=== PATIENT | female | born 1945 | race Caucasian/White ===

== ENCOUNTER 2016-08-15 07:01 | Day surgery (SDC) | payer MEDICARE, OTHER ==
[~2016-08-15] VITALS: Ht 152.4 cm; Wt 80.0 kg
[2016-08-15] VITALS (10 sets, daily range): BP systolic 86–180; BP diastolic 45–84; PULSE 61–70; RESP 14–21; Ht 152.4 cm; Wt 80.0 kg
[~2016-08-15 07:01] MED LIST: ACAR50TA9; ATEN-51; GLIM2TAB47; LEVO88TA36; METF-480; SIMV20TA; SITA100T8
[2016-08-15 08:15] LABS: INR 0.93; PROTIME 12.5 Sec (12.2-14.2)
[2016-08-15 08:16] LABS: PARTIAL THROMBOPLASTIN TIME 27.4 Sec (25.0-35.0)
[2016-08-15 08:17] LABS: BASOPHIL # 0.1 10^3/ul (0.0-0.1); BASOPHILS % 0.9 % (0.0-2.0); EOSINOPHILS # 0.1 10^3/ul (0.0-0.5); HEMATOCRIT 36.9 % (37.0-47.0); HEMOGLOBIN 12.4 g/dl (12.0-16.0); LYMPHOCYTES # 2.6 10^3/ul (0.8-2.9); LYMPHOCYTES % 36.2 % (15.0-51.0); MEAN CORPUSCULAR HEMOGLOBIN 29.5 pg (29.0-33.0); MEAN CORPUSCULAR HGB CONC 33.4 g/dl (32.0-37.0); MEAN CORPUSCULAR VOLUME 88.4 fl (82.0-101.0); MONOCYTE # 0.5 10^3/ul (0.3-0.9); MONOCYTES % 7.2 % (0.0-11.0); NEUTROPHIL # 3.9 10^3/ul (1.6-7.5); NEUTROPHILS % 54.7 % (39.0-77.0); PLATELET COUNT 247 10^3/UL (140-440); RED BLOOD COUNT 4.18 10^6/ul (4.20-5.40); RED CELL DISTRIBUTION WIDTH 13.3 % (11.5-14.5); UNCORRECTED WBC 7.1 10^3/ul (4.8-10.8); WHITE BLOOD COUNT 7.1 10^3/ul (4.8-10.8)
[2016-08-15 08:22] LABS: CHOL/HDL RATIO 3.8 RATIO; CREATININE 0.52 mg/dl (0.44-1.00); POTASSIUM 4.1 mmol/L (3.5-5.1)
[2016-08-15 08:23] LABS: CALCIUM 9.2 mg/dl (8.4-10.2)
[2016-08-15] MEDS ORDERED: PIOG30TA26 PO (08:46)
[2016-08-15] MEDS ORDERED: DULO60CA6 PO (08:46)
[2016-08-15] MEDS ORDERED: LEVO88TA3 PO (08:46)
[2016-08-15] MEDS ORDERED: METF850T PO (08:46)
[2016-08-15] MEDS ORDERED: CLON1TAB3 PO (08:46)
[2016-08-15] MEDS ORDERED: METO25TA4 PO (08:46)
[2016-08-15] MEDS ORDERED: VALS160T20 PO (08:46)
[2016-08-15] MEDS ORDERED: ASPI81TA3 PO (08:47)
[2016-08-15 08:54] LABS: CONDITION 1
[2016-08-15] MEDS ORDERED: NITROGLYCERIN (IC) 100 MCG/ML INJ ONE (08:54)
[2016-08-15] MEDS ORDERED: VERAPAMIL 5 MG INJ ONE (08:54)
[2016-08-15] MEDS ORDERED: IODIXANOL LOCM 100 ML BTL ONE (08:54)
[2016-08-15] MEDS ORDERED: MIDAZOLAM 1 MG/ML 2 ML INJ ONE (08:54)
[2016-08-15] MEDS ORDERED: FENTAnyl 50 MCG/ML VIAL ONE (08:54)
[2016-08-15] MEDS ORDERED: HEPARIN 1000 UNITS/ML 10 ML INJ ONE (08:54)
--- NOTE | 2016-08-15 09:24 | RADRPT ---
PROCEDURE: XR Chest. CLINICAL INDICATION: Coronary artery disease. TECHNIQUE: Single frontal view. COMPARISON: None. FINDINGS: The lungs are clear. The heart size is normal. There is no pleural effusion. There is no pneumothorax. IMPRESSION: 1. Normal chest radiograph. RPTAT: QQ .Nabil Palumbo MD, Date Time Electronically viewed and signed by .Nabil Palumbo MD, on 08/15/2016 09:24 .R/
[2016-08-15] MEDS ORDERED: SOD CHLORIDE 0.9% 1,000 ML IV SCH (09:49)
[2016-08-15] MEDS ORDERED: morphine 2 MG INJ IV PRN (10:00)
[2016-08-15] MEDS ORDERED: AL HYDROX/MG HYDROX/SIMETH 30 ML CUP PO PRN (10:00)
[2016-08-15] MEDS ORDERED: ACETAMINOPHEN 325 MG TAB PO PRN (10:00)
[2016-08-15] MEDS ORDERED: ONDANSETRON 4 MG INJ IV PRN (10:00)
--- NOTE | 2016-08-15 15:54 | CARRPT ---
DATE OF PROCEDURE: 08/15/2016 TYPE OF PROCEDURE: 1. Left heart catheterization. 2. Coronary angiography. 3. Left ventriculogram. ATTENDING PHYSICIAN: Lisseth Moise MD REFERRING PHYSICIAN: Dr. Valery Lyons. INDICATION: Chest pain refractory to medical therapy. TYPE OF ANESTHESIA: Conscious and local. BRIEF HISTORY: Ms. Stout is a 70-year-old female with history of hypertension , dyslipidemia, diabetes mellitus who initially presented with complaints of substernal chest pain. The patient was placed on maximal medical therapy, but continued to have refractory chest pain and brought to cardiac catheterization lab in order to assess for the possibility of significant obstructive coronary artery disease lending to her symptoms of chest pain. PROCEDURE: After informed consent was obtained, the patient was brought to the [facility] cardiac catheterization lab where her right radial area was prepped and draped in usual sterile fashion. Lidocaine 2% was infiltrated into right radial area in order to achieve adequate local anesthesia. Using modified Seldinger technique, the right radial artery was cannulated and a 6-[place] arterial sheath was placed. A 6-[place] JL3.5 catheter was used to cannulate the left main coronary ostium. With contrast injection, multiple views of the left coronary arterial system were obtained. JL3.5 was removed over a guidewire and a JR4 was used to cannulate the right coronary arterial ostium. With contrast injection, multiple views of the right coronary arterial system were obtained. JL4 was removed over a guidewire and a 6-[place] pigtail was passed across the aortic valve, the left ventricular end- diastolic pressure was measured and 20 mL of contrast were injected. The pigtail catheter was then pulled back across the aortic valve to assess for significant gradient, which there was not, and removed. Subsequently, this completed the procedure. The patient's sheath was removed. A TR was applied. There were no noted complications. FINDINGS: 1. Coronary angiography: Left main 4 mm, no significant stenoses. Circumflex proximally is a 2.5 mm vessel and has no significant focal stenoses. LAD proximally is a 3.5 mm vessel, has a 20% proximal stenosis and a 20% to 30% distal stenosis. The LAD goes around the apex. There are proximal and mid branching diagonals with each approximately 2 mm with no significant focal stenoses. The right coronary artery is a dominant vessel, proximally is 3 mm, has mild luminal irregularities up to 20% in the mid portion. It gives off a small PDA _2 mm vessel and a 2.5 posterolateral branch that covers a large territory with no significant focal stenoses. 2. Left ventriculogram revealed a left ventricular ejection fraction of 60% to 65%. Left ventricular end diastolic pressure 28 to 29, no significant aortic stenosis by gradient, 1+ mitral regurgitation. TOTAL FLUOROSCOPY TIME: 3.8 minutes. TOTAL CONTRAST: 70 mL. IMPRESSION: 1. Very mild nonobstructive coronary artery disease. 2. Preserved left ventricular systolic function. 3. Elevated left heart filling pressures. 4. No significant aortic stenosis by gradient. 5. 1+ mitral regurgitation. RECOMMENDATIONS: In light of procedure findings this time would: 1. Maximize medical management. 2. Aggressive risk factor reduction. 3. The patient will be readmitted to same day surgery center for post- catheterization observation and continued management of symptoms with probable discharge later this afternoon. Dictated By: LISSETH POON/ADILSON Conf#: [id number] DID#: [id number] CC: VALERY LYONS MD;*EndCC* MTDD
--- NOTE | 2016-08-15 18:40 | RADRPT ---
Vent Rate: 53 bpm RR Interval: 0 msec [place] Interval: 166 msec QRS Duration: 86 msec QT Interval: 428 msec QTC Interval: 401 msec P-R-T [place]: 51 - 41 - 55 degrees Sinus bradycardia Otherwise normal ECG Electronically Signed By: José Miguel Mendez [id number]
== END 2016-08-15 15:39 | disposition home or self-care (01) ==
LOC: SDS 07:01
PROVIDERS: ATTEND Internal Medicine
DX: I25.10 Atherosclerotic heart disease of native coronary artery without angina pectoris (principal); I34.0 Nonrheumatic mitral (valve) insufficiency; I10 Essential (primary) hypertension; E78.5 Hyperlipidemia, unspecified; E11.9 Type 2 diabetes mellitus without complications
CPT/HCPCS: 71010; 80048; 80061; 82962; 85025; 85610; 85730; 93005; 93458; C1769; C1887; J1644; J2250; J3010; Q9967